=== PATIENT | female | born 1990 | race Caucasian/White ===

== ENCOUNTER 2024-03-08 10:04 | Outpatient (CLI) | payer OTHER | END 2024-03-08 11:12 | disposition home or self-care (01) | LOC: NST 10:04 | PROVIDERS: ATTEND Obstetrics & Gynecology Gynecology | DX: Z34.83 Encounter for supervision of other normal pregnancy, third trimester (principal) ==

== ENCOUNTER 2024-03-08 12:15 | Inpatient (IN) | payer OTHER ==
[~2024-03-08] VITALS: Ht 162.6 cm; Wt 86.2 kg
[2024-03-13] MEDS ORDERED: RINGERS SOLUTION,LACTATED 1,000 ML IV SCH (12:15)
[2024-03-13] MEDS ORDERED: OXYTOCIN 500 ML IV ONE (12:30)
[2024-03-13] MEDS ORDERED: ECOTRIN81 MG PO (12:33)
[2024-03-13] MEDS ORDERED: PRENATAL + DHA1 EAC1 PO (12:33)
[2024-03-13 12:54] LABS: HEMATOCRIT 35.5 % (36.0-45.00); HEMOGLOBIN 12.4 g/dL (12.0-15.00); MEAN CORPUSCULAR HEMOGLOBIN 31.5 pg (27.00-32.0); RED BLOOD COUNT 3.94 M/uL (4.00-6.00); RED CELL DISTRIBUTION WIDTH 14.3 % (11.5-14.5)
[2024-03-13 13:19] LABS: INR 0.98; PARTIAL THROMBOPLASTIN TIME 25.8 SECONDS (22.0-34.0); PLATELET COUNT 164 K/uL (150-450); PROTHROMBIN TIME 10.3 SECONDS (9.0-11.5)
[2024-03-13 13:31] LABS: ALBUMIN 3.2 gm/dL (3.4-5.0); BILIRUBIN TOTAL 0.31 mg/dL (0.3-1.2); CALCIUM 9.7 mg/dL (8.5-10.1); CREATININE SERUM 0.53 mg/dL (0.55-1.02); GFR 131.27; GLOBULINA 3.7 G/DL (2.4-3.5); POTASSIUM 4.2 mEq/L (3.5-5.1); TOTAL PROTEIN 6.9 gm/dL (6.4-8.2)
[2024-03-13] MEDS ORDERED: CHLORHEXIDINE GLUCONATE 120 ML BOTTLE TP SCH (18:15)
[2024-03-13] MEDS ORDERED: ERYTHROMYCIN BASE 1 GM TUBE OP SCH (18:15)
[2024-03-13] MEDS ORDERED: CEFAZOLIN SODIUM 1,000 MG VIAL IV ONE (20:00)
[2024-03-13] MEDS ORDERED: METHYLERGONOVINE MALEATE 0.2 MG/ML AMPUL IV ONE (20:00)
[2024-03-13] MEDS ORDERED: KETOROLAC TROMETHAMINE 60 MG VIAL IM STA (20:29)
[2024-03-13] MEDS ORDERED: LIDOCAINE HCL 1% 20ML VIAL IJ ONE (20:30)
[2024-03-13] MEDS ORDERED: MORPHINE SULFATE 4 MG/ML VIAL IV ONE (20:30)
[2024-03-13] MEDS ORDERED: DOCUSATE CALCIUM 240 MG CAPSULE PO SCH (21:00)
[2024-03-13] MEDS ORDERED: IBUprofen 400 MG TABLET PO PRN (23:00)
[2024-03-14 07:49] LABS: HEMATOCRIT 26.3 % (36.0-45.00); MEAN CELL VOLUME 88.9 fL (80.00-100.00); PLATELET COUNT 144 K/uL (150-450); RED BLOOD COUNT 2.96 M/uL (4.00-6.00); RED CELL DISTRIBUTION WIDTH 14.5 % (11.5-14.5)
[2024-03-14 07:56] LABS: HEMOGLOBIN 9.2 g/dL (12.0-15.00)
[2024-03-14] MEDS ORDERED: PNV,CALCIUM 72/IRON/FOLIC ACID 1 TAB TABLET PO SCH (09:00)
[2024-03-14] MEDS ORDERED: IRON/V.C/V.B12/FOLIC A/VIT. E 1 CAPL CAPLET PO SCH (17:00)
== END 2024-03-15 16:08 | disposition home or self-care (01) | DRG 807 ==
LOC: LDR 03-13 11:37 → OB/GYN 03-13 18:08
PROVIDERS: ADMIT Obstetrics & Gynecology Gynecology; ATTEND Obstetrics & Gynecology Gynecology
PROC: 10E0XZZ Delivery of Products of Conception, External Approach (ICD-10-PCS; principal; 2024-03-13)
PROC: 0KQM0ZZ Repair Perineum Muscle, Open Approach (ICD-10-PCS; 2024-03-13)
PROC: 4A1HXCZ Monitoring of Products of Conception, Cardiac Rate, External Approach (ICD-10-PCS; 2024-03-13)
DX: O70.1 Second degree perineal laceration during delivery (principal); Z37.0 Single live birth; O36.5930 Maternal care for other known or suspected poor fetal growth, third trimester, not applicable or unspecified; Z3A.39 39 weeks gestation of pregnancy; Z20.822 Contact with and (suspected) exposure to COVID-19

== ENCOUNTER 2024-03-13 10:20 | Outpatient (CLI) | payer OTHER ==
[2024-03-13] MEDS ORDERED: ECOTRIN81 MG PO (12:33)
[2024-03-13] MEDS ORDERED: PRENATAL + DHA1 EAC1 PO (12:33)
== END 2024-03-13 11:39 | disposition still patient (30) ==
LOC: NST 10:20
PROVIDERS: ATTEND Obstetrics & Gynecology
DX: Z34.83 Encounter for supervision of other normal pregnancy, third trimester (principal)